=== PATIENT | male | born 1950 | race Caucasian/White ===

== ENCOUNTER 2018-08-20 00:51 | Observation (INO) | payer OTHER ==
[2018-08-20 01:19] LABS: ADD MAN DIFF? NO
[2018-08-20 01:22] LABS: BASOPHIL # 0.1 10^3/ul (0.0-0.1); BASOPHILS % 1.1 % (0.0-2.0); EOSINOPHILS # 0.4 10^3/ul (0.0-0.5); EOSINOPHILS % 3.9 % (0.0-7.0); HEMATOCRIT 40.1 % (42.0-52.0); HEMOGLOBIN 12.9 g/dl (14.0-18.0); MEAN CORPUSCULAR HEMOGLOBIN 29.7 pg (29.0-33.0); MEAN CORPUSCULAR HGB CONC 32.2 g/dl (32.0-37.0); MEAN CORPUSCULAR VOLUME 92.4 fl (82.0-101.0); MEAN PLATELET VOLUME 10.9 fl (7.4-10.4); MONOCYTE # 0.8 10^3/ul (0.3-0.9); MONOCYTES % 8.7 % (0.0-11.0); NEUTROPHIL # 6.1 10^3/ul (1.6-7.5); NEUTROPHILS % 64.5 % (39.0-77.0); PLATELET COUNT 264 10^3/UL (140-415); RED BLOOD COUNT 4.34 10^6/ul (4.70-6.10); RED CELL DISTRIBUTION WIDTH 14.3 % (11.5-14.5)
[2018-08-20 01:22] LABS: WHITE BLOOD COUNT 9.5 10^3/ul (4.8-10.8)
[2018-08-20 01:38] LABS: ADD UMIC YES; UR ASCORBIC ACID NEGATIVE (NEGATIVE); UR BILIRUBIN (Dip) NEGATIVE (NEGATIVE); UR BLOOD (Dip) 1+ mg/dL (NEGATIVE); UR CLARITY CLEAR (CLEAR); UR COLOR STRAW (YELLOW); UR GLUCOSE (Dip) NEGATIVE (NEGATIVE); UR KETONES (Dip) NEGATIVE (NEGATIVE); UR LEUKOCYTE ESTERASE (Dip) NEGATIVE Leu/ul (NEGATIVE); UR NITRITE (Dip) NEGATIVE (NEGATIVE); UR RBC 0 /HPF (0-5); UR SPECIFIC GRAVITY (Dip) 1.006 (1.003-1.030); UR TOTAL PROTEIN (Dip) 1+ mg/dl (NEGATIVE); UR UROBILINOGEN (Dip) NEGATIVE (NEGATIVE); UR WBC 0 /HPF (0-5)
[2018-08-20 01:40] LABS: ALANINE AMINOTRANSFERASE 15 IU/L (13-69); ALBUMIN 4.2 g/dl (3.3-4.9); ALBUMIN/GLOBULIN RATIO 1.55; ALKALINE PHOSPHATASE 139 IU/L (42-121); ANION GAP 11 (5-13); ASPARTATE AMINO TRANSFERASE 19 IU/L (15-46); BILIRUBIN,INDIRECT 0.1 mg/dl (0-1.1); BILIRUBIN,TOTAL 0.1 mg/dl (0.2-1.3); BLOOD UREA NITROGEN 63 mg/dl (7-20); CALCIUM 8.1 mg/dl (8.4-10.2); CARBON DIOXIDE 23 mmol/L (21-31); CHLORIDE 107 mmol/L (97-110); CREATININE 4.09 mg/dl (0.61-1.24); Estimated GFR 15 mL/min (>60); GLUCOSE 112 mg/dl (70-220); POTASSIUM 4.9 mmol/L (3.5-5.1); SODIUM 141 mmol/L (135-144); TOTAL PROTEIN 6.9 g/dl (6.1-8.1)
[2018-08-20 01:50] LABS: TROPONIN-I < 0.012 ng/ml (0.000-0.120)
[2018-08-20 01:52] LABS: ACETAMINOPHEN < 10.0 ug/ml (10.0-30.0); AMPHETAMINE/METHAMPHETAMINE Negative (NEGATIVE); BARBITURATES Negative (NEGATIVE); BENZODIAZEPINES Negative (NEGATIVE); CANNABINOIDS Negative (NEGATIVE); COCAINE Negative (NEGATIVE); ETHANOL < 10.0 mg/dl; OPIATES Positive (NEGATIVE); SALICYLATE < 1.0 mg/dl (5.0-30.0)
[2018-08-20] MEDS: SOD CHLORIDE 0.9% 500 ML IV (02:26)
[2018-08-20] MEDS ORDERED: GLUCAGON 1 MG INJ IM (03:30)
[2018-08-20] MEDS ORDERED: GLUCOSE GEL 15 GRAM TUBE PO ×2 (03:30)
[2018-08-20] MEDS ORDERED: DEXTROSE 50% 50 ML SYRINGE IV ×2 (03:30)
[2018-08-20] MEDS ORDERED: DOCUSATE SODIUM 100 MG CAP PO (03:30)
[2018-08-20] MEDS ORDERED: NACL 0.9% 3 ML SYG IV (03:30)
[2018-08-20] MEDS ORDERED: GLUCOSE GEL 15 GRAM TUBE BUCCAL (03:30)
[2018-08-20 04:11] LABS: CHOLESTEROL 170 mg/dl (100-200)
[2018-08-20 04:11] LABS: CHOL/HDL RATIO 3.7 RATIO; HDL CHOLESTEROL 45 mg/dl (30-78); LDL CHOLESTEROL,CALCULATED 93 mg/dl; TRIGLYCERIDES 160 mg/dl (0-149)
[2018-08-20 04:33] LABS: HEMOGLOBIN A1C 6.2 % (0-5.9)
[2018-08-20] MEDS: ACETAMINOPHEN 325 MG TAB PO (05:13)
[2018-08-20 05:20] LABS: LACTIC ACID 0.5 mmol/L (0.5-2.0)
[2018-08-20] MEDS: LORAZEPAM 2 MG INJ IV ×2 (06:35→16:32)
[2018-08-20 07:45] LABS: B-TYPE NATRIURETIC PEPTIDE 505 PG/ML (0-125)
[2018-08-20] MEDS: INSULIN ASPART [NOVOLOG] 3 ML PEN SC ×4 (08:00→20:39)
[2018-08-20 08:07] LABS: PROSTATE SPECIFIC ANTIGEN 0.5 ng/ml (0.0-4.0)
[2018-08-20 08:21] LABS: CREATININE,URINE RANDOM 32.41 mg/dl (20-370); PROTEIN/CREAT RATIO 2.68 RATIO
[2018-08-20] MEDS: ASPIRIN (EC) 81 MG TAB PO (08:37)
[2018-08-20] MEDS: FAMOTIDINE 20 MG TAB PO (08:37)
[2018-08-20] MEDS: CLOPIDOGREL 75 MG TAB PO (08:37)
[2018-08-20] MEDS: PANTOPRAZOLE (EC) 40 MG TAB PO (08:37)
[2018-08-20] MEDS ORDERED: LOSARTAN 50 MG TAB PO (09:00)
[2018-08-20] MEDS: LEVOTHYROXINE 125 MCG TAB PO (09:00)
[2018-08-20] MEDS: AMLODIPINE 10 MG TAB PO (09:00)
[2018-08-20] MEDS: morphine 2 MG INJ IV ×2 (12:25→21:19)
[2018-08-20] MEDS: hydrALAzine 20 MG INJ IV (13:43)
[2018-08-20] MEDS: BISACODYL (EC) 5 MG TAB PO (16:31)
[2018-08-20] MEDS: ATORVASTATIN 20 MG TAB PO (20:40)
[2018-08-20] MEDS ORDERED: INSULIN GLARGINE [LANtus] 3 ML PEN SC (21:00)
[2018-08-20] MEDS ORDERED: HEPARIN 5,000 UNIT/0.5 ML VIAL (21:14)
[2018-08-20] MEDS: ONDANSETRON 4 MG INJ IV (21:17)
[2018-08-20] MEDS: HEPARIN 5,000 UNIT/1 ML VIAL SC (21:31)
[2018-08-20] MEDS: HALOPERIDOL 5 MG INJ IM (22:19)
[2018-08-21] MEDS: HYDROCODONE/APAP (5/325) TAB PO ×3 (01:36→23:35)
[2018-08-21] MEDS: ACCU-CHEK XX (02:00)
[2018-08-21 05:43] LABS: ADD MAN DIFF? NO
[2018-08-21] MEDS ORDERED: HEPARIN 5,000 UNIT/0.5 ML VIAL ×3 (05:44→20:51)
[2018-08-21 05:49] LABS: WHITE BLOOD COUNT 11.1 10^3/ul (4.8-10.8)
[2018-08-21 05:49] LABS: BASOPHIL # 0.1 10^3/ul (0.0-0.1); BASOPHILS % 0.8 % (0.0-2.0); EOSINOPHILS # 0.4 10^3/ul (0.0-0.5); EOSINOPHILS % 3.4 % (0.0-7.0); HEMATOCRIT 39.7 % (42.0-52.0); HEMOGLOBIN 12.7 g/dl (14.0-18.0); LYMPHOCYTES # 2.3 10^3/ul (0.8-2.9); LYMPHOCYTES % 20.4 % (15.0-51.0); MEAN CORPUSCULAR HEMOGLOBIN 29.4 pg (29.0-33.0); MEAN CORPUSCULAR VOLUME 91.9 fl (82.0-101.0); MEAN PLATELET VOLUME 11.4 fl (7.4-10.4); MONOCYTE # 0.9 10^3/ul (0.3-0.9); MONOCYTES % 8.4 % (0.0-11.0); NEUTROPHIL # 7.4 10^3/ul (1.6-7.5); NEUTROPHILS % 66.6 % (39.0-77.0); PLATELET COUNT 260 10^3/UL (140-415); RED BLOOD COUNT 4.32 10^6/ul (4.70-6.10); RED CELL DISTRIBUTION WIDTH 14.7 % (11.5-14.5)
[2018-08-21] MEDS: PANTOPRAZOLE (EC) 40 MG TAB PO (06:00)
[2018-08-21] MEDS: LEVOTHYROXINE 125 MCG TAB PO (06:01)
[2018-08-21] MEDS: HEPARIN 5,000 UNIT/1 ML VIAL SC ×3 (06:09→21:06)
[2018-08-21 06:21] LABS: ALANINE AMINOTRANSFERASE 12 IU/L (13-69); ALBUMIN 3.7 g/dl (3.3-4.9); ALBUMIN/GLOBULIN RATIO 1.37; ALKALINE PHOSPHATASE 128 IU/L (42-121); ANION GAP 9 (5-13); ASPARTATE AMINO TRANSFERASE 19 IU/L (15-46); BILIRUBIN,INDIRECT 0.1 mg/dl (0-1.1); BILIRUBIN,TOTAL 0.1 mg/dl (0.2-1.3); BLOOD UREA NITROGEN 53 mg/dl (7-20); CALCIUM 8.1 mg/dl (8.4-10.2); CARBON DIOXIDE 23 mmol/L (21-31); CHLORIDE 109 mmol/L (97-110); CREATININE 3.42 mg/dl (0.61-1.24); Estimated GFR 18 mL/min (>60); GLUCOSE 119 mg/dl (70-220); MAGNESIUM 2.3 mg/dl (1.7-2.5); POTASSIUM 5.1 mmol/L (3.5-5.1); SODIUM 141 mmol/L (135-144); TOTAL PROTEIN 6.4 g/dl (6.1-8.1)
[2018-08-21 06:27] LABS: FREE T3 2.85 pg/ml (2.77-5.27)
[2018-08-21 06:28] LABS: FREE T4 (FREE THYROXINE) 1.24 ng/dl (0.78-2.44)
[2018-08-21] MEDS: INSULIN ASPART [NOVOLOG] 3 ML PEN SC ×4 (07:57→21:00)
[2018-08-21] MEDS: ASPIRIN (EC) 81 MG TAB PO (08:08)
[2018-08-21] MEDS: CLOPIDOGREL 75 MG TAB PO (08:08)
[2018-08-21] MEDS: AMLODIPINE 10 MG TAB PO (08:08)
[2018-08-21] MEDS: SOD CHLORIDE 0.9% 1,000 ML IV (09:07)
[2018-08-21 16:11] LABS: CREATININE, RANDOM URINE 34 mg/dL (20-320); MICROALBUMIN 33.9 mg/dL; MICROALBUMIN/CREATININE RATIO 997 (<30)
[2018-08-21] MEDS: ATORVASTATIN 20 MG TAB PO (21:01)
[2018-08-21] MEDS: METOPROLOL (XL) 50 MG TAB PO (21:02)
[2018-08-21] MEDS: hydrALAzine 20 MG INJ IV (22:11)
[2018-08-22] MEDS ORDERED: ARTIFICIAL TEARS 15 ML OPH BOTH EYES (01:00)
[2018-08-22] MEDS: ACCU-CHEK XX (01:20)
[2018-08-22] MEDS: morphine 2 MG INJ IV ×2 (01:30→14:08)
[2018-08-22] MEDS: AL HYDROX/MG HYDROX/SIMETH 30 ML CUP PO ×2 (03:08→11:43)
[2018-08-22] MEDS: SOD CHLORIDE 0.9% 1,000 ML IV ×2 (03:09→04:09)
[2018-08-22 05:49] LABS: ADD MAN DIFF? NO
[2018-08-22 05:56] LABS: WHITE BLOOD COUNT 11.5 10^3/ul (4.8-10.8)
[2018-08-22 05:56] LABS: BASOPHIL # 0.1 10^3/ul (0.0-0.1); BASOPHILS % 0.9 % (0.0-2.0); EOSINOPHILS # 0.3 10^3/ul (0.0-0.5); EOSINOPHILS % 2.7 % (0.0-7.0); HEMATOCRIT 40.9 % (42.0-52.0); HEMOGLOBIN 13.3 g/dl (14.0-18.0); LYMPHOCYTES # 3.2 10^3/ul (0.8-2.9); LYMPHOCYTES % 27.4 % (15.0-51.0); MEAN CORPUSCULAR HEMOGLOBIN 29.5 pg (29.0-33.0); MEAN CORPUSCULAR HGB CONC 32.5 g/dl (32.0-37.0); MEAN CORPUSCULAR VOLUME 90.7 fl (82.0-101.0); MONOCYTE # 1.1 10^3/ul (0.3-0.9); MONOCYTES % 9.3 % (0.0-11.0); NEUTROPHIL # 6.8 10^3/ul (1.6-7.5); NEUTROPHILS % 58.9 % (39.0-77.0); PLATELET COUNT 295 10^3/UL (140-415); RED BLOOD COUNT 4.51 10^6/ul (4.70-6.10); RED CELL DISTRIBUTION WIDTH 14.3 % (11.5-14.5)
[2018-08-22] MEDS ORDERED: HEPARIN 5,000 UNIT/0.5 ML VIAL ×2 (06:00→14:03)
[2018-08-22] MEDS: LEVOTHYROXINE 125 MCG TAB PO (06:03)
[2018-08-22] MEDS: PANTOPRAZOLE (EC) 40 MG TAB PO (06:03)
[2018-08-22] MEDS: HEPARIN 5,000 UNIT/1 ML VIAL SC ×2 (06:05→14:23)
[2018-08-22 06:18] LABS: ANION GAP 10 (5-13); BLOOD UREA NITROGEN 49 mg/dl (7-20); CALCIUM 8.7 mg/dl (8.4-10.2); CARBON DIOXIDE 23 mmol/L (21-31); CHLORIDE 107 mmol/L (97-110); CREATININE 2.85 mg/dl (0.61-1.24); Estimated GFR 22 mL/min (>60); GLUCOSE 134 mg/dl (70-220); MAGNESIUM 2.1 mg/dl (1.7-2.5); PHOSPHORUS 3.4 mg/dl (2.5-4.9); POTASSIUM 4.6 mmol/L (3.5-5.1); SODIUM 140 mmol/L (135-144)
[2018-08-22] MEDS: INSULIN ASPART [NOVOLOG] 3 ML PEN SC ×2 (07:53→12:04)
[2018-08-22] MEDS: CLOPIDOGREL 75 MG TAB PO (08:29)
[2018-08-22] MEDS: FAMOTIDINE 20 MG TAB PO (08:29)
[2018-08-22] MEDS: HYDROCODONE/APAP (5/325) TAB PO (08:30)
[2018-08-22] MEDS: ASPIRIN (EC) 81 MG TAB PO (08:30)
[2018-08-22] MEDS: METOPROLOL (XL) 50 MG TAB PO (10:09)
[2018-08-22] MEDS: hydrALAzine 20 MG INJ IV (12:07)
[2018-08-22] MEDS: DILTIAZEM (SR) 90 MG CAP PO (12:20)
== END 2018-08-22 15:32 | disposition home or self-care (01) ==
LOC: E/R 00:51 → ICU 03:04 → 6WM 18:23
PROVIDERS: Hospitalist
DX: N17.9 Acute kidney failure, unspecified (principal); R55 Syncope and collapse; I10 Essential (primary) hypertension; E11.9 Type 2 diabetes mellitus without complications; N28.1 Cyst of kidney, acquired; K21.9 Gastro-esophageal reflux disease without esophagitis
CPT/HCPCS: 36415; 70450; 71045; 76775; 80048; 80053; 80061; 80307; 81001; 81003; 82043; 82570; 82962; 83036; 83605; 83735; 83880; 84100; 84153; 84154; 84439; 84443; 84481; 84484; 85025; 93005; 93306; 93880; 95819; 97116; 97162; 97166; 99217; 99285-25; G0378